=== PATIENT | female | born 1995 | race Hispanic/Latino ===

== ENCOUNTER 2017-10-04 14:59 | Emergency (ER) | payer SELFPAY ==
[~2017-10-04] VITALS: Ht 162.6 cm; Wt 229.0 kg
[~2017-10-04 14:59] MED LIST: PROMETHAZINE HC25 M1 PO; PROVENTIL HFA6.7 GM INH
== END 2017-10-04 15:13 | disposition home or self-care (01) ==
LOC: ED 14:59
DX: M54.6 Pain in thoracic spine (principal)

== ENCOUNTER 2018-10-18 21:58 | Emergency (ER) | payer SELFPAY ==
[~2018-10-18] VITALS: Ht 160 cm; Wt 95.2 kg
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
== END 2018-10-19 00:06 | disposition home or self-care (01) ==
LOC: ED 21:58
DX: S00.83XA Contusion of other part of head, initial encounter (principal); S60.221A Contusion of right hand, initial encounter; Y04.8XXA Assault by other bodily force, initial encounter; J45.909 Unspecified asthma, uncomplicated; F41.9 Anxiety disorder, unspecified
CPT/HCPCS: 70450; 70486; 73130; 99284-25

== ENCOUNTER 2020-11-22 07:13 | Emergency (ER) | payer OTHER, BC ==
[~2020-11-22] VITALS: Ht 160 cm; Wt 99.8 kg
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
[2020-11-22] MEDS ORDERED: METFORMIN HCL500 MG PO (07:21)
[2020-11-22] MEDS ORDERED: LETROZOLE2.5 MG PO (07:21)
[2020-11-22] MEDS ORDERED: MEDROXYPROGESTE10 MG PO (07:22)
== END 2020-11-22 07:47 | disposition home or self-care (01) ==
LOC: ED 07:13
DX: S29.012A Strain of muscle and tendon of back wall of thorax, initial encounter (principal); X50.0XXA Overexertion from strenuous movement or load, initial encounter; Y99.0 Civilian activity done for income or pay; J45.909 Unspecified asthma, uncomplicated; Z79.899 Other long term (current) drug therapy; Z79.84 Long term (current) use of oral hypoglycemic drugs
CPT/HCPCS: 99283; A9270